=== PATIENT | male | born 1960 | race Caucasian/White ===

== ENCOUNTER → 2023-11-17 06:50 | Outpatient (REF) | payer OTHER, SELFPAY | LOC: HWRAD 06:50 | PROVIDERS: ATTENDING PHYSICIAN Nurse Practitioner Family | DX: R10.9 Unspecified abdominal pain (principal) | CPT/HCPCS: 76700 ==

== ENCOUNTER 2024-12-28 11:08 | Inpatient (IN) | payer OTHER, MEDICARE, SELFPAY ==
[2024-12-28 08:14] VITALS: BP 142/86
[2024-12-28 08:29] VITALS: BMI 40.7
--- NOTE | 2024-12-28 08:47 | ED.GENMED ---
History of Present Illness
General
Chief Complaint: Abdominal Pain
Source: patient
Exam Limitations: none
Time Seen by Provider: 12/28/24 08:25
Nursing documentation reviewed up to this point in time: agreed with
History of Present Illness
History of Present Illness:
Patient presents to ED secondary to persistent upper abdominal pain over the past 4 days. Abdominal pain described as sharp, across his abdomen, worse when laying on his stomach, without any alleviating factors. Denies fever or chills. Denies
trauma. Denies back pain. Denies difficulty with urination. Patient states that he started to experience 'stomach virus' symptoms, last week, consisting of vomiting and diarrhea. Vomiting stopped 5 days ago and diarrhea has finally subsided over
the past 2 days. Patient has been only able to eat chicken broth over the past few days. Since onset of symptoms, patient states that he has lost approximately 12 pounds. Of note, prior to onset of symptoms, patient's spouse experienced similar
GI symptoms, which resolved after 1 week. Denies recent travel. Denies recent change in medications or diet. Denies previous history of similar symptoms. Patient who does have history of idiopathic pancreatitis, he states that his symptoms are
different from what he has experienced in the past.
Past History
Past History
ED Past Medical History: GERD, HTN and Other (Cluster headaches, constipation, migraines, degenerative joint disease, scoliosis, spinal stenosis); Negative Hypercholesterolemia, IDDM, NIDDM or CO
ED Past Surgical History: Cardiac (Cardiac catheterization) and Orthopedic (History of back surgery, scope of the left knee)
Social History
Tobacco: Non-smoker
Alcohol: None
Drug: None
Personal:
Living: with family
Employment: Employed
Family History
Family History: Hypertension and CAD; Negative Early CAD
Review of Systems
Review of Systems
Allergies reviewed?: Yes
All Other Systems: ROS reviewed and negative except as documented in HPI and ROS
Constitutional: Reports no symptoms; Denies fever or chills
Respiratory: Reports no symptoms
Cardiac: Reports no symptoms
ABD/GI: Reports abdominal pain, vomiting and diarrhea
: Reports no symptoms
Musculoskeletal: Reports no symptoms
Skin: Reports no symptoms
Neurological: Reports no symptoms
Phy Exam
Physical Exam
Physical Exam:
Physical Exam
General: no apparent distress, not acutely ill. afebrile
Head: nc/at. eomi
Neck: supple. no meningeal signs.
Heart: s1/s2 regular rate and rhythm, no murmur.
Lungs: no acute respiratory distress. clear bilaterally
Abdomen: normal bowel sounds. no distention. mild RUQ/epigastric tenderness to palpation
Neuro: alert and oriented x 3. no focal neurological deficits
Skin: no rash
Psychiatric: well kept. interactive and cooperative
Extremities: no edema. no calf tenderness.
Course
Orders/Labs/Results
Orders:
Orders
12/28/24 08:46
0.9% Sodium Chloride 1000 ml [Nss] 1,000 ml IV BOLUS
Ketorolac [Toradol] 15 mg IV NOW STA
Pantoprazole [Protonix IV] 40 mg IV NOW STA
12/28/24 09:00
Complete Blood Count/With Diff Urgent
Comprehensive Metabolic Panel Urgent
Lipase Urgent
Urinalysis Reflex To Culture Urgent
Date Specimen was Collected: 12/28/24
Time Specimen was Collected: 08:54
Urine Microscopic Reflex Cult Urgent
Urine Culture Urgent
SERENE Source: U
Specimen Description:
Date Specimen was Collected: 12/28/24
Time Specimen was Collected: 08:54
12/28/24 09:59
US Abdomen Complete/Upper Urgent
Comment:
Reason For Exam: RUQ pain
12/28/24 10:15
Lactated Ringers [Lr] 500 ml IV 150 mls/hr
12/28/24 10:39
Code Status As Directed
Resuscitation Status: Full Code
Bisacodyl [Dulcolax] 10 mg RECTAL [id number] PRN
Docusate W/Senna [Senokot-S] 1 tablet PO BIDPRN PRN
Ketorolac [Toradol] 10 mg IV Q6HPRN PRN
Ondansetron Injectable [Zofran] 4 mg IV Q6HPRN PRN
Polyethylene Glycol Powder [Miralax] 17 grams PO DAILYPRN PRN
12/28/24 10:40
Pneumatic Compression Sleeves As Directed
Type: Knee high
12/28/24 10:52
Admit/Transfer Patient As Directed
Co-Sign Provider:
Level of Care: Inpatient admission
Assign to:: Medical/Surgical
Physician / Group: pat Hidalgo
Diagnosis: Pancreatitis
Reason for Hospitalization: Abdominal pain possibly secondary to pancreatitis
Expected length of stay greater than two midnights?: Yes
ELOS- Estimated Length of Stay in days: 3
I certify the patient meets the requirements for IP care: Yes
12/28/24 14:00
Ketorolac [Toradol] 10 mg IV Q6HPRN PRN
12/28/24 18:00
Enoxaparin Sodium [Lovenox] 40 mg SC QPM
Abnormal Lab Results
12/28/24
09:00
Absolute Neuts (auto) 7.2 H 10^3/uL
(1.4-6.5)
Absolute Lymphs (auto) 1.1 L 10^3/uL
(1.2-3.4)
Absolute Monos (auto) 0.8 H 10^3/uL
(0.1-0.6)
Neutrophils % 76.6 H %
(42.2-75.2)
Lymphocytes % 11.8 L %
(20.5-51.1)
Glucose 118 H mg/dl
(70-99)
ALT 230 H U/L
(0-50)
Lipase 3981 H* U/L
(23-300)
Urine Ketones 3+ A
(Negative)
Ur Occult Blood Reflex 1+ A
(Negative)
Leukocyte Esterase Rfl 1+ A
(Negative)
Urine RBC 7-10 A /HPF
(0-2)
Urine Bacteria (Reflex) Few A
(Negative)
Urine Albumin (Reflex) 2+ A
(Neg - Trace)
12/28/24 09:00
12/28/24 09:00
Vital Signs
Initial and Last Documented VS:
Initial Vital Signs
Temp Pulse Resp BP Pulse Ox
97.6 F 93 18 142/86 97
12/28/24 08:14 12/28/24 08:14 12/28/24 08:14 12/28/24 08:14 12/28/24 08:14
Last Documented Vital Signs
Temp Pulse Resp BP Pulse Ox
97.6 F 76 15 147/80 95
12/28/24 08:14 12/28/24 11:20 12/28/24 11:20 12/28/24 11:20 12/28/24 09:15
MDM/Problems Addressed
MDM/Problems Addressed:
History and exam, along with blood work consistent with likely recurrent pancreatitis, likely mediated by recent nonspecific viral illness. However, given patient's persistent right flank/right upper quadrant pain, will obtain abdominal ultrasound.
Patient will be admitted for further evaluation and treatment.
*Critical Care Note
Total Time (30-74mins, 75-104mins- exclusive of procedures): Not Applicable
ED Attending Note
-
Portions of this chart may have been created with voice recognition software.� Occasional wrong word or��sound alike� substitutions may have occurred due to the inherent limitations of voice recognition software.
Discharge Plan
Departure
Patient Disposition: Admit
Date of Disposition: 12/28/24
Time of Disposition: 10:12
Admit to: Med/Surg
Presentation/result/management discussed w/ accepting MD/DO: Hospitalist
Discharge Problem:
Pancreatitis
Interventions
Interventions:
*Risk Screen - Suicide Last Done: 12/28/24 08:14
*General Assessment Last Done: 12/28/24 08:14
*Neglect/Abuse Screening Last Done: 12/28/24 08:14
*ED- Fall Risk Assessment Last Done: 12/28/24 08:32
*ED COVID-19 Vaccine History Last Done: 12/28/24 08:29
NO-Dtnlrz-Iygvmfwrjr Assessment Last Done: 12/28/24 08:31
[2024-12-28] MEDS: NSS 1000 IV (09:04)
[2024-12-28] MEDS: TORADOL 15 MG IV (09:05)
[2024-12-28] MEDS: PROTONIX IV 40 MG IV (09:05)
[2024-12-28 09:07] LABS: % Basophils 0.3 % (0-2); % Eosinophils 2.3 % (0-6); % Immature Granulocytes 0.4 % (0-0.5); % Lymphocytes 11.8 % (20.5-51.1); % Monocytes 8.6 % (1.7-9.3); % Neutrophils 76.6 % (42.2-75.2); Absolute Eosinophils 0.2 10^3/uL (0-0.7); Absolute Lymphocytes 1.1 10^3/uL (1.2-3.4); Absolute Monocytes 0.8 10^3/uL (0.1-0.6); Absolute Neutrophils 7.2 10^3/uL (1.4-6.5); Hematocrit 42.7 % (39.0-52.0); Hemoglobin 14.8 g/dL (13.0-18.0); Mean Corp Hgb Conc. 34.7 g/dL (33.0-37.0); Mean Corpuscular Hgb 30.5 pg (27.0-31.0); Mean Corpuscular Volume 87.9 fL (80.0-94.0); Mean Platelet Volume 9.7 fL (7.4-10.4); Nucleated Red Blood Cells % 0 % (-); Platelet Count 242 10^3/uL (130-400); Red Blood Cell Count 4.86 10^6/uL (4.70-6.10); Red Cell Dist. Width 12.6 % (11.5-14.5); White Blood Cell Count 9.4 10^3/uL (4.8-10.8)
[2024-12-28 09:19] LABS: Urine Albumin 2+ (Neg - Trace); Urine Bilirubin Negative (Negative); Urine Character Clear (Clear); Urine Color Yellow; Urine Glucose Negative (Negative); Urine Ketone 3+ (Negative); Urine Leukocyte 1+ (Negative); Urine Nitrite Negative (Negative); Urine Occult Blood 1+ (Negative); Urine Urobilinogen Negative (Neg - 1+)
[2024-12-28 09:20] VITALS: BP 134/63
[2024-12-28 09:36] LABS: ALT (SGPT) 230 U/L (0-50); AST (SGOT) 44 U/L (17-59); Alkaline Phosphatase 123 U/L (38-126); Blood Urea Nitrogen 13 mg/dl (9-20); Calcium 9.4 mg/dl (8.4-10.2); Carbon Dioxide 24 mmol/L (22-30); Chloride 104 mmol/L (98-107); Estimated Creatinine Clearance > 125 ml/min; Glucose 118 mg/dl (70-99); Potassium 4.1 mmol/L (3.5-5.1); Sodium 140 mmol/L (135-145); Total Bilirubin 0.8 mg/dl (0.2-1.3); Total Protein 6.4 g/dl (6.3-8.2); eGFR > 60.00
[2024-12-28 09:47] LABS: Urine Mucus Few; Urine Urothelial Cell 0-2 /LPF (FEW)
[2024-12-28 09:48] LABS: Urine Bacteria Few (Negative)
[2024-12-28 09:51] LABS: Lipase 3981 U/L (23-300)
[2024-12-28] MEDS: LR 500 IV ×2 (10:23→13:52)
[2024-12-28 10:25] VITALS: BP 128/68
[2024-12-28 11:20] VITALS: BP 147/80
--- NOTE | 2024-12-28 13:01 | HPS.HSE ---
Addendum entered and electronically signed by Chinmay Hidalgo MD 12/28/24 14:14:
I personally performed a history and physical exam of the patient and discussed management with the resident. I reviewed the resident's note and agree with the documented findings and plan of care HPI/CC.
Patient is a 64-year-old male with PMH of idiopathic pancreatitis, essential hypertension, depression/anxiety, hyperlipidemia, BPH came to ER with new onset of abdominal pain started on weekend. Patient have history of idiopathic pancreatitis
diagnosed many years back and has been following with Dr. Westbrook/GI periodically. Patient have not been hospitalized for any pancreatitis episode recently although spouse stated of patient having minimal abdominal discomfort/nausea symptoms
periodically. Last week patient had some episode of nausea/vomiting and felt of having viral gastroenteritis which improved although patient started having abdominal discomfort which continued to progress. Came to ER for further evaluation and was
found to having recurrence of pancreatitis. During my visit patient lying comfortably in bed still complaining abdominal/epigastric discomfort although improved with pain medication. Not feeling nauseous
HEENT: No pallor, cyanosis, or jaundice. Throat clear.
NECK: Supple. No JVD.
RESPIRATORY: Lungs clear to auscultation.
CVS: S1, S2 normal. RRR. No murmur, rub or gallop.
ABDOMEN: soft, minimal epigastric tenderness
EXTREMITIES: No peripheral cyanosis or edema.
SIMULATION EDUCATOR: AOx3. No focal deficits.
Acute pancreatitis
h/o of Idiopathic pancreatitis
-Lipase of 3980
-Patient drinks alcohol occasionally.
-Maintain n.p.o./IV fluids/pain meds
-With known history of idiopathic pancreatitis would not send whole workup. GI consultation requested for further assistance as well.
Acute transplant
-Minimal elevation of ALT to 230. AST/ALP normal
-Liver abdomen ultrasound
Essential hypertension
-Continue ramipril. Continue holding hydrochlorothiazide
HLD
-hold statin with ALT elevation
DVT PPX -scd
Full code
Total time spent : 80 mins
I personally saw and examined the patient.
I have reviewed all diagnostic interpretations and treatment plans as written.
Time includes patient management by me, time spent at the patients bedside, time to review lab and imaging results, discussing patient care, documentation in the medical record, and time spent with the family or caregiver and discussing care plan
with RN/Consultants.
Original Note:
Family Physician
-
Family Physician: ANNEL Hernandez
Chief Complaint
-
Abdominal pain
History of Present Illness
The patient is a 64-year-old male with a past medical history of idiopathic pancreatitis, GERD, hypertension, migraines, scoliosis and spinal stenosis. He presented to ER today with worsening abdominal pain which started on Wednesday. The patient
reported having gastroenteritis likely symptoms last week. He had a few episodes of vomiting and diarrhea last week. His last vomiting was about 5 days ago and his last diarrhea episode was about 2 or 3 days ago. He denies chills or fever or
abdominal pain at that time. Reports his abdominal pain started on Wednesday and gradually increased. At ER admission, the patient lab results were remarkable for elevated lipase level to 3981 and ALT level to 250. He was started on IV bolus
fluids and given PPI and Toradol. He was ordered an abdominal US and admitted to the hospital for further management.
Medical History
Past Medical History
Past Medical History: Reports GERD and HTN
Additional Past Medical History:
Idiopathic pancreatitis,
Migraines
Scoliosis
Spinal stenosis
Past Surgical History: Reports Cardiac (Cardiac catheterization) and Orthopedic (Surgery for back pain and left knee scope)
Social History
Tobacco: Former Smoker (Stop smoking in 2001 /smoked for 25 years)
Alcohol: None
Drug: None
Personal:
Living: With Family
Employment: Employed
Family History
Family History: CAD and Hypertension
Allergies / Home Medications
Allergies reflects when Allergies were last updated in [employer].
Home Medications with original date entered in [employer]
Allergy/Medication List:
Allergies
Allergy/AdvReac Type Severity Reaction Status Date / Time
levofloxacin [From Levaquin] Allergy Hives Verified 12/28/24 08:14
ofloxacin [From Floxin] Allergy Hives Verified 12/28/24 08:14
omeprazole Allergy Itching Verified 12/28/24 08:19
prochlorperazine edisylate Allergy Severe Verified 12/28/24 08:14
[From Compazine] Bronchospasm;
Extrapyramidal
reaction
prochlorperazine maleate Allergy Severe Verified 12/28/24 08:14
[From Compazine] bronchospasm;
Extrapyramidal
reaction
Sulfa (Sulfonamide Allergy Hives Verified 12/28/24 08:14
Antibiotics)
Home Medications
aspirin 81 mg tablet,delayed release 81 mg PO DAILY 09/01/10
multivitamin with folic acid 400 mcg tablet (Tab-A-Bharat) 1 tab PO DAILY 02/03/15
hydrochlorothiazide 12.5 mg tablet 12.5 mg PO DAILY 04/29/23
rosuvastatin 10 mg tablet (Crestor) 10 mg PO QPM 04/29/23
tamsulosin 0.4 mg capsule (Flomax) 0.4 mg PO DAILY 04/29/23
escitalopram oxalate 10 mg tablet 10 mg PO DAILY 12/28/24
meloxicam 7.5 mg tablet 7.5 mg PO DAILY 12/28/24
ramipril 10 mg capsule 10 mg PO DAILY 12/28/24
Review of Systems
-
History Source: Patient
EENT: Reports No Symptoms
Respiratory: Reports No Symptoms
Cardiac: Reports No Symptoms
Abdomen/GI: Reports Abdominal Pain and Nausea
: Reports No Symptoms
Musculoskeletal: Reports No Symptoms
Skin: Reports No Symptoms
Neurological: Reports No Symptoms
Physical Exam
Vital Signs
Vital Signs
Temp Pulse Resp BP Pulse Ox
97.6 F 76 15 147/80 95
12/28/24 08:14 12/28/24 11:20 12/28/24 11:20 12/28/24 11:20 12/28/24 09:15
Physical Exam
General: Well Developed, Well Nourished and Pain
HEENT: NormoCephalic and Anicteric
Respiratory: Clear
Cardiac: S1/S2 and Regular Rhythm
GI: Soft, Non Distended and Tender (Mild tenderness on mid abdominal area/rates his pain6/10)
Musculoskeletal: No Clubbing and No Cyanosis
Skin: Warm
Neuro: Awake, Alert, Oriented and AO x 3
Psych: Calm
Laboratory Results
-
12/28/24 09:00
12/28/24 09:00
Laboratory Results
Total Bilirubin 0.8 mg/dl (0.2-1.3) 12/28/24 09:00
AST 44 U/L (17-59) 12/28/24 09:00
ALT 230 U/L (0-50) H 12/28/24 09:00
Alkaline Phosphatase 123 U/L (38-126) 12/28/24 09:00
Lipase 3981 U/L (23-300) H* 12/28/24 09:00
Impression/Plan
-
IMPRESSION: The patient is a 64-year-old male with a past medical history of idiopathic pancreatitis and had his first episode of pancreatitis about 10 years ago. He was seen by a physician to be sought for his pancreatitis at [place] and his
results come back negative at that time. He reported having gastroenteritis symptoms last week and lost around 12 pounds due having diarrhea and vomiting. His last episode of vomiting was about 5 days ago and his diarrhea started about 2 days ago.
He felt some recovery from his gastroenteritis. But his abdominal pain started on Wednesday and got gradually worsened. He denies fever and chills, chest pain or back pain. His last bowel movement was this morning normal formed. His lab results
was significant for elevated lipase and ALT levels.
#Pancreatitis likely secondary to gallbladder stone vs viral
-No history of gallbladder stone
-Alcohol consuming
-History of recent gastroenteritis
-N.p.o. for now
-IV LR open white at 150/ml per hour
-Abdominal US: Not remarkable- lipase 3981-ALT 250
-GI consulted
#GERD
-Start PPI
#Hypertension
-Continue hydrochlorothiazide
-Continue ramipril
# Hyperlipidemia
-Hold statin for now due to elevated ALT
# BPH
-Continue tamsulosin
# Chronic headache/migraine
#Knee pain
-Continue meloxicam
#Anxiety
-Continue Escitalopram
#DVT Prop: Lovenox
Code:Full code
PLAN:
--- NOTE | 2024-12-28 13:23 | CM ---
Met patient, and dgtr in room. He and live in a 2 level home with 2 steps to enter. There is half bath on entry clerk. UP full flight to full bath and bedrooms. He had TKR in past and has rolling walker and had [facility], PT
RN.
PCP Mahad Bennett
Pharmacy : [facility]
He is independent, drives and does not anticipate any needs at discharge.
Admitted with pancreatitis which he had 4 years ago.
PLAN: home no needs
--- NOTE | 2024-12-28 14:42 | CON.GI ---
Addendum entered and electronically signed by Lily Perez DO 12/28/24 15:42:
The patient was seen and examined by me independently in collaboration with the nurse practitioner.
Past medical history/social history/medications/allergies/family history reviewed.
Lab data and imaging data reviewed.
Brady Kate is a 64 y.o. male with history of idiopathic pancreatitis (attributed to statin therapy), HTN, depression/anxiety, HLD, BPH who presents with abdominal pain which initially started as nausea/vomiting/diarrhea after had
similar symptoms. N/V/D improved, however, abdominal pain improved, prompting him to present for evaluation.
Labs significant for ALT 230, AST 44, Tbili 0.8, Alk phos 123, Lipase 3981.
Abdominal US showed a benign hepatic hemangioma, GB is physiologically distended w/ fluid and shows no shadowing calculi or wall thickening, CBD measures 6 mm. Pancreas not visualized.
He does report at least 4 episodes of what he calls 'mild pancreatitis' per year, often at night, self-limiting and has not sought care for them. He had a negative HIDA in 2019. Prior MRIs in 2015 at time of prior acute pancreatitis requiring
hospitalization, main PD distended to 3 mm in HOP mildly dilated side branch ducts in pancreatic head. Mild diffuse pancreatic parenchymal atrophy, resolution of prior acute mild pancreatitis. Stable moderate hepatomegaly and small hepatic
hemangiomas.
A/P: Abdominal pain 2/2 acute pancreatitis (meets 2/3 diagnostic criteria with lipase and RUQ abdominal pain), etiology unclear
-Suspect 2/2 gallstones with his frequent episodes consistent with biliary colic, prior workup was unremarkable
-check triglycerides (152 during episode in 2015)
-check MRI/MRCP, ativan ordered to help with patients claustrophobia
-IVF, antiemetics, analgesia prn
Original Note:
Consultation
-
Date/Time Consultation Requested: 12/28/24 1340
Date/Time Consultation Performed: 12/28/24 1500
Requesting Provider: Golden Driscoll MD
Performing Provider: ANNEL Matos, Zoe Perez, DO
Reason for Consultation: abdominal pain
Medical History
Chief Complaint / HPI
Chief Complaint: abdominal pain, bloating, vomiting
History of Present Illness:
Pt is a 64yo with hx pancreatitis 2014 ? statin related with recurrent ' pancreatic attacks' 4 times per year, sleep apnea, headaches, constipation, DJD, scoliosis, spinal stenosis, GERD, HTN, prior knee and back surgery with onset of
nausea/vomiting/diarrhea 1 week ago after had similar illness. Initially though symptoms were related to norovirus but did not improve and abdominal pain worsened rating at 7-8/10 in ER. On admission noted with lipase 3981 with bili 0.8, AST
44, ALT 230, alk phos 123. Imaging on admission with US noted small hepatic hemangioma, slightly enlarged non visualization of pancreas, gallbladder distended with fluid and no stones or wall thickening with normal CBD.
In review with patient he again admits to pancreatitis years ago then recurrent episode that will last for short periods about 4 times per year. Episodes may occurs more often at night. Pt admits to diarrhea and feeling of constipation prior
to admission with taking some laxatives without improvement.
Past Medical History
Past Medical History: GERD, HTN and Other (pancreatitis 2015 ? statin related with recurrent ' pancreatic attacks' 4 times per year, sleep apnea, headaches, constipation, DJD, scoliosis, spinal stenosis, )
Past Surgical History: Cardiac (cath) and Orthopedic (back and knee surgery )
Social History
Tobacco: Former Smoker (quit 20 years ago )
Alcohol: Occasional (rare)
Drug: None
Personal:
Living: With Family
Employment: Employed
Family History
Family History: Other (no family hx colon CA or polyps)
Allergies / Home Medications
Allergy/AdvReac Type Severity Reaction Status Date / Time
levofloxacin [From Levaquin] Allergy Hives Verified 12/28/24 08:14
ofloxacin [From Floxin] Allergy Hives Verified 12/28/24 08:14
omeprazole Allergy Itching Verified 12/28/24 08:19
prochlorperazine edisylate Allergy Severe Verified 12/28/24 08:14
[From Compazine] Bronchospasm;
Extrapyramidal
reaction
prochlorperazine maleate Allergy Severe Verified 12/28/24 08:14
[From Compazine] bronchospasm;
Extrapyramidal
reaction
Sulfa (Sulfonamide Allergy Hives Verified 12/28/24 08:14
Antibiotics)
�Medication �Instructions �Recorded
aspirin 81 mg tablet,delayed 81 mg PO DAILY 09/01/10
release
multivitamin with folic acid 400 1 tab PO DAILY 02/03/15
mcg tablet (Tab-A-Bharat)
hydrochlorothiazide 12.5 mg tablet 12.5 mg PO DAILY 04/29/23
rosuvastatin 10 mg tablet (Crestor) 10 mg PO QPM 04/29/23
tamsulosin 0.4 mg capsule (Flomax) 0.4 mg PO DAILY 04/29/23
escitalopram oxalate 10 mg tablet 10 mg PO DAILY 12/28/24
meloxicam 7.5 mg tablet 7.5 mg PO DAILY 12/28/24
ramipril 10 mg capsule 10 mg PO DAILY 12/28/24
Review of Systems
-
History Source: Patient and Family
Constitutional: Reports No Symptoms
EENT: Reports No Symptoms
Respiratory: Reports No Symptoms
Cardiac: Reports No Symptoms
Abdomen/GI: Reports Abdominal Pain, Nausea, Vomiting, Diarrhea and Constipated
: Reports No Symptoms
Musculoskeletal: Reports No Symptoms
Skin: Reports No Symptoms
Neurological: Reports Weakness
Endocrine: Reports No Symptoms
Hematologic/Lymphatic: Reports No Symptoms
Vital Signs
Temp Pulse Resp BP Pulse Ox
97.6 F 76 15 147/80 95
12/28/24 08:14 12/28/24 11:20 12/28/24 11:20 12/28/24 11:20 12/28/24 09:15
Physical Exam
Exam
General: Well Developed, Well Nourished and No Apparent Distress
HEENT: Normocephalic
Respiratory: Clear
Cardiac: Regular Rhythm
GI: Soft, Non Distended and Tender (epigastric pain and upper abdomen )
Musculoskeletal: No Clubbing and No Cyanosis
Skin: Warm and Dry
Neuro: Awake, Alert and AO x 3
Psych: Calm
Results
WBC 9.4 10^3/uL (4.8-10.8) 12/28/24 09:00
Hgb 14.8 g/dL (13.0-18.0) 12/28/24 09:00
Hct 42.7 % (39.0-52.0) 12/28/24 09:00
MCV 87.9 fL (80.0-94.0) 12/28/24 09:00
Plt Count 242 10^3/uL (130-400) 12/28/24 09:00
Absolute Neuts (auto) 7.2 10^3/uL (1.4-6.5) H 12/28/24 09:00
Sodium 140 mmol/L (135-145) 12/28/24 09:00
Potassium 4.1 mmol/L (3.5-5.1) 12/28/24 09:00
Chloride 104 mmol/L (98-107) 12/28/24 09:00
Carbon Dioxide 24 mmol/L (22-30) 12/28/24 09:00
BUN 13 mg/dl (9-20) 12/28/24 09:00
Creatinine 0.7 mg/dL (0.7-1.3) 12/28/24 09:00
Calcium 9.4 mg/dl (8.4-10.2) 12/28/24 09:00
Total Bilirubin 0.8 mg/dl (0.2-1.3) 12/28/24 09:00
AST 44 U/L (17-59) 12/28/24 09:00
ALT 230 U/L (0-50) H 12/28/24 09:00
Alkaline Phosphatase 123 U/L (38-126) 12/28/24 09:00
Lipase 3981 U/L (23-300) H* 12/28/24 09:00
Diagnostic Image Results:
12/28/24 US Abdomen Complete/Upper
IMPRESSION: Unremarkable abdominal ultrasound except for a small hepatic hemangioma. Slightly enlarged.
Nonvisualization of the pancreas
Prior GI Procedures:
EGD:12/2017 [facility] - Normal examined duodenum. Biopsied.
- Erosive gastropathy. Biopsied.
- Gastric ulcer. Biopsied.
- Erythematous mucosa in the antrum.
- Z-line regular, 40 cm from the incisors.
- No gross lesions in esophagus.
bx neg h pylori, neg metaplasia
Colonoscopy: 02/26/23 [facility] - Preparation of the colon was fair.
- Two 3 to 4 mm polyps in the cecum, removed with a
cold snare. Resected and retrieved.
- Three 2 to 4 mm polyps in the descending colon,
removed with a cold snare and removed with a jumbo
cold forceps. Resected and retrieved.
- Diverticulosis in the sigmoid colon and in the
descending colon.
- Internal hemorrhoids.
bx TA
Assessment / Plan
-
Pt is a 64yo with hx pancreatitis 2014 ? statin related with recurrent ' pancreatic attacks' 4 times per year, sleep apnea, headaches, constipation, DJD, scoliosis, spinal stenosis, GERD, HTN, prior knee and back surgery with onset of
nausea/vomiting/diarrhea 1 week ago after had similar illness. Initially though symptoms were related to norovirus but did not improve and abdominal pain worsened rating at 7-8/10 in ER. On admission noted with lipase 3981 with bili 0.8, AST
44, ALT 230, alk phos 123. Imaging on admission with US noted small hepatic hemangioma, slightly enlarged non visualization of pancreas, gallbladder distended with fluid and no stones or wall thickening with normal CBD.
-epigastric abdominal pain with elevated lipase and mild AST elevation with concern for pancreatitis
-hx pancreatitis 2015 ? statin related with ' pancreatic attacks' 4 times per year
-nausea/vomiting/diarrhea with concern for norovirus prior to abdominal pain and sick contact
-constipation with bloating and laxative use prior to admission
other med problems:
-hx spinal stenosis/scoliosis/chronic back/knee pain on daily Meloxicam
-headaches
-DJD
-hx colon polyps
PLAN:etiology of symptoms concern for pancreatitis-- gallstone related ? period passage of stone with recurrent episodes, biliary colic, vs other
rare ETOH use
will check MRI/MRCP to further eval pancreas as not visualized on imaging -- will need ativan prior to imaging
trend labs
aggressive IVF
pain control per hospitalist
add IGG4 and TG level in am
family updated
-
-
Thank you for consultation and allowing me to participate in the patient's care. Please call the transmission line engineer GI physician during the after hours with any questions or concerns.
[2024-12-28 15:24] VITALS: BP 133/63; BMI 40.9
[2024-12-28] MEDS: ROXICODONE 5 MG PO (16:14)
[2024-12-28] MEDS: LR 1000 IV (17:11)
[2024-12-28] MEDS: ZOFRAN 4 MG IV (18:49)
[2024-12-28 22:58] VITALS: BP 103/60
[2024-12-29] MEDS: LR 1000 IV ×3 (01:02→14:26)
[2024-12-29 07:00] VITALS: BP 157/79
[2024-12-29] MEDS: ASPIR LOW (ENTERIC COATED) 81 MG PO (07:28)
[2024-12-29] MEDS: TYLENOL 650 MG PO ×2 (07:28→16:42)
[2024-12-29] MEDS: ALTACE 10 MG PO (07:28)
[2024-12-29] MEDS: LEXAPRO 10 MG PO (07:29)
[2024-12-29] MEDS: THERAGRAN 1 TABLET PO (07:29)
[2024-12-29] MEDS: FLOMAX 0.4 MG PO (07:29)
[2024-12-29 08:01] LABS: Hemoglobin 14.1 g/dL (13.0-18.0); Mean Corp Hgb Conc. 35.3 g/dL (33.0-37.0); Mean Corpuscular Hgb 31.2 pg (27.0-31.0); Mean Corpuscular Volume 88.5 fL (80.0-94.0); Platelet Count 256 10^3/uL (130-400); Red Blood Cell Count 4.52 10^6/uL (4.70-6.10); Red Cell Dist. Width 12.6 % (11.5-14.5); White Blood Cell Count 11.5 10^3/uL (4.8-10.8)
--- NOTE | 2024-12-29 08:12 | W.PN.HOSP.TC ---
Addendum entered and electronically signed by Chinmay Hidalgo MD 12/29/24 14:40:
Add on to dx list
Obesity - due to excessive calorie intake
Addendum entered and electronically signed by Chinmay Hidalgo MD 12/29/24 13:42:
I saw and evaluated the patient. I reviewed the resident�s note and agree with findings and plan as documented in the resident�s note.
Acute pancreatitis
h/o of Idiopathic pancreatitis
-Lipase of 3980
-Patient drinks alcohol occasionally.
-Maintain n.p.o./IV fluids/pain meds
Acute transaminitis
-Minimal elevation of ALT to 230. AST/ALP normal
-Liver abdomen ultrasound normal-GI checking MRI/MRCP
Essential hypertension
-Continue ramipril. Continue holding hydrochlorothiazide
Headache
-Toradol not effective/cannot tolerate Compazine
-Imitrex 25mg trial dose ordered
HLD
-hold statin with ALT elevation
DVT PPX -scd
Full code
Total time spent : 52 mins
Original Note:
Today's Communication/Plan
-
- MRI/MRCP awaiting to be obtained
- Maintain n.p.o.
- Continue IV fluids
- Follow CBC, CMP and lipase levels
Assessment / Plan
Assessment / Plan
Plan
#Acute pancreatitis
-History of Idiopathic pancreatitis
-Lipase of 3980//lipase ordered to trend with ongoing abdominal pain
-No history of gallbladder stones
-No regular alcohol consuming/occasionally per patient's report
-Triglyceride 133
-Maintain NPO
-Continue IV fluids at 150/ml per hour
-GI on board
-MRI/MRCP awaiting to be obtained--if results come back unremarkable EUS and genetic testing can be considered to understand the underlying reason
# Transaminitis
-ALT found elevated to 230 at admission-trended down to 150--- AST/ALP normal--Tbil 0.7
-Liver abdomen ultrasound: Unremarkable except for small hepatic hemangioma and slightly enlarged liver
# Nausea
- No vomiting since yesterday
- IV Zofran was helpful at some point
- Has severe allergy for Compazine
- Metoclopramide can be considered
# Headache
-History of chronic headache and migraine
-Toradol did not help his pain too much
- Could not tolerate oxycodone
Essential hypertension
-Continue ramipril. Continue holding hydrochlorothiazide
-PRN IV hydralazine
HLD
-hold statin with ALT elevation
DVT PPX -scd
Full code
Anticipated Discharge: 24 - 48 hours
Subjective/Interval History
-
Date of Service: December 29, 2024
Patient reports having headache and some nausea. He reports Zofran helped his nausea some and feeling somewhat better now. He complains still from abdominal pain and rates it 03/06
Objective Data
-
Labs:
Laboratory Results
12/29/24
07:37
WBC 11.5 H
Hgb 14.1
Hct 40.0
Plt Count 256
Sodium Pending
Potassium Pending
Chloride Pending
Carbon Dioxide Pending
BUN Pending
Creatinine Pending
Glucose Pending
Calcium Pending
Total Bilirubin Pending
AST Pending
ALT Pending
Alkaline Phosphatase Pending
Vital Signs:
Vital Signs
Temp Pulse Resp BP Pulse Ox
97.9 F 82 18 103/60 97
12/28/24 22:58 12/28/24 22:58 12/28/24 22:58 12/28/24 22:58 12/28/24 22:58
I&O
12/28/24 12/29/24 12/30/24
06:59 06:59 06:59
Intake Total 1540 / 1540
Output Total 200 / 200
Balance 1340 / 1340
Review of Systems
-
History Source: Patient
Constitutional: Reports Other (Headache)
Respiratory: Reports No Symptoms
Cardiac: Reports No Symptoms
Abdomen/GI: Reports Abdominal Pain and Nausea
Genitourinary: Reports No Symptoms
Musculoskeletal: Reports No Symptoms
Skin: Reports No Symptoms
Neuro: Reports No Symptoms
Physical Exam
-
General: Well Developed, Well Nourished, Pain and Morbidly Obese
HEENT: Normocephalic and Atraumatic
Respiratory: Clear to Auscultation
Cardiac: Regular Rhythm and S1/S2
GI: Soft, Nondistended and Tender (Mild tenderness on the mid abdominal area)
Musculoskeletal: No Clubbing and No Cyanosis
Skin: Warm
Neuro: Awake, Alert, Oriented, AO x 3 and Other (Headache-history of chronic headache and migraine)
[2024-12-29 08:36] LABS: ALT (SGPT) 150 U/L (0-50); AST (SGOT) 27 U/L (17-59); Albumin 3.5 g/dl (3.5-5.0); Alkaline Phosphatase 92 U/L (38-126); Blood Urea Nitrogen 13 mg/dl (9-20); Calcium 9.4 mg/dl (8.4-10.2); Carbon Dioxide 27 mmol/L (22-30); Chloride 101 mmol/L (98-107); Estimated Creatinine Clearance > 125 ml/min; Glucose 94 mg/dl (70-99); Potassium 4.6 mmol/L (3.5-5.1); Sodium 140 mmol/L (135-145); Total Bilirubin 0.7 mg/dl (0.2-1.3); Triglycerides 133 mg/dl (10-149); eGFR > 60.00
--- NOTE | 2024-12-29 10:54 | W.PN.GI.CBS2 ---
Today's Communication / Plan
-
continue with IVF; MRI/MRCP pending
Assessment / Plan
-
Brady Kate is a 64 y.o. male with history of idiopathic pancreatitis (attributed to statin therapy), HTN, depression/anxiety, HLD, BPH who presents with abdominal pain which initially started as nausea/vomiting/diarrhea after had
similar symptoms. N/V/D improved, however, abdominal pain improved, prompting him to present for evaluation.
ALT 230--> 150
AST 44
Tbili 0.8
Alk phos 123
Lipase 3981.
Abdominal US showed a benign hepatic hemangioma, GB is physiologically distended w/ fluid and shows no shadowing calculi or wall thickening, CBD measures 6 mm. Pancreas not visualized.
He does report at least 4 episodes of what he calls 'mild pancreatitis' per year, often at night, self-limiting and has not sought care for them. He had a negative HIDA in 2019. Prior MRIs in 2015 at time of prior acute pancreatitis requiring
hospitalization, main PD distended to 3 mm in HOP mildly dilated side branch ducts in pancreatic head. Mild diffuse pancreatic parenchymal atrophy, resolution of prior acute mild pancreatitis. Stable moderate hepatomegaly and small hepatic
hemangiomas.
A/P: Abdominal pain 2/2 acute pancreatitis (meets 2/3 diagnostic criteria with lipase and RUQ abdominal pain), etiology unclear
-Suspect 2/2 gallstones with his frequent episodes consistent with biliary colic, prior workup was unremarkable
-check triglycerides (152 during episode in 2014)
-check MRI/MRCP, ativan ordered to help with patients claustrophobia
-IVF w/ LR @ 150 cc/hr (moderate volume resuscitation) antiemetics, analgesia prn
-if above workup is negative, would consider EUS and genetic testing as an outpatient given recurrent episodes without unclear etiology, though, his story is highly suspicious for symptomatic cholelithiasis
Subjective
Subjective
Date of Service: December 29, 2024
Patient seen in follow-up, at bedside. Pain tolerable at the moment. No overnight events. MRI/MRCP pending.
Objective
Data Reviewed
Laboratory Data:
Laboratory Results
12/29/24 07:37
12/29/24 07:37
Laboratory Results
Total Bilirubin 0.7 mg/dl (0.2-1.3) 12/29/24 07:37
AST 27 U/L (17-59) 12/29/24 07:37
ALT 150 U/L (0-50) H 12/29/24 07:37
Alkaline Phosphatase 92 U/L (38-126) 12/29/24 07:37
Lipase 3981 U/L (23-300) H* 12/28/24 09:00
Vital Signs and I&O:
Vital Signs
Temp Pulse Resp BP Pulse Ox
98.4 F 78 19 157/79 97
12/29/24 07:00 12/29/24 07:00 12/29/24 07:00 12/29/24 07:00 12/29/24 07:00
I&O
12/28/24 12/29/24 12/30/24
06:59 06:59 06:59
Intake Total 1540 / 1540
Output Total 200 / 200
Balance 1340 / 1340
Physical Exam
Physical Exam
HEENT: Anicteric and Moist mucous membranes
GI: Soft, Non Distended and Non Tender (mild TTP in epigastrium and RUQ, no rebound or guarding)
--- NOTE | 2024-12-29 11:34 | PN.CDI ---
CDI
- -
CDI:
Physician Documentation Request
Admit Date: 12/28/24 11:08
Dear Doctor,
Please review the following and provide your response in the progress notes.
Clinical Indicators:
Height: 5'9
Weight: 276 lbs
BMI: 40.8
If possible, please provide an associated diagnosis related to the abnormal BMI, such as:
Morbid obesity
BMI is not significant
Other (please specify)
Use of terms such as suspected, likely, concern for, or probable (associated with a specific diagnosis that is being evaluated, monitored, or treated as if it exists) are acceptable and can be coded in the inpatient setting, when documented at the
time of discharge.
Thank you,
Cyndy Coy RN
CDI Specialist
Please use your independent medical judgment in providing your response.
[2024-12-29] MEDS: ATIVAN 1 MG PO (12:26)
[2024-12-29] MEDS: IMITREX 25 MG PO (14:26)
[2024-12-29 15:00] VITALS: BP 141/85
[2024-12-29 23:03] VITALS: BP 132/55
[2024-12-30] MEDS: LR 1000 IV (03:00)
[2024-12-30 07:10] VITALS: BP 150/70
--- NOTE | 2024-12-30 07:33 | W.PN.HOSP.TC ---
Today's Communication/Plan
-
- Discharge
Assessment / Plan
Assessment / Plan
Plan
#Acute pancreatitis
-History of Idiopathic pancreatitis
-Lipase trended down to 1040 from 3981
-No history of gallbladder stones
-No regular alcohol consuming/occasionally per patient's report
-Triglyceride 133
-Tolerating oral taking well
-Continue IV fluids at 150/ml per hour
-GI on board: Ordered IgG4-patient will follow-up result with his PCP
-MRI/MRCP:Mild acute interstitial edematous pancreatitis. No loculated peripancreatic fluid collection or evidence for pancreatic necrosis-No MRCP evidence for choledocholithiasis.
# Transaminitis
-ALT trending down --- AST/ALP normal--Tbil normal
-Liver abdomen ultrasound: Unremarkable except for small hepatic hemangioma and slightly enlarged liver
# Nausea
- Improved
- IV Zofran was helpful at some point
- Has severe allergy for Compazine
# Headache
-History of chronic headache and migraine
-Toradol did not help his pain too much
-Could not tolerate oxycodone
-Given 1 dose of sumatriptan and help pain
Essential hypertension
-Continue ramipril
-Continue hydrochlorothiazide following discharge
-PRN IV hydralazine
HLD
- Continue statin
- Follow-up with his PCP to check his liver enzymes in a week
DVT PPX -scd
Full code
Anticipated Discharge: Today
Subjective/Interval History
-
Date of Service: December 30, 2024
Patient reported less abdominal pain and improvement with his headache. He reported tolerating his diet since yesterday without any abdominal pain.
Objective Data
-
Labs:
Laboratory Results
12/30/24
06:04
WBC Pending
Hgb Pending
Hct Pending
Plt Count Pending
Sodium Pending
Potassium Pending
Chloride Pending
Carbon Dioxide Pending
BUN Pending
Creatinine Pending
Glucose Pending
Calcium Pending
Total Bilirubin Pending
AST Pending
ALT Pending
Alkaline Phosphatase Pending
Vital Signs:
Vital Signs
Temp Pulse Resp BP Pulse Ox
97.9 F 66 18 132/55 98
12/29/24 23:03 12/29/24 23:03 12/29/24 23:03 12/29/24 23:03 12/29/24 23:03
I&O
12/29/24 12/30/24 12/31/24
06:59 06:59 06:59
Intake Total 1540 / 1540 1120 / 1120
Output Total 200 / 200
Balance 1340 / 1340 1120 / 1120
Review of Systems
-
History Source: Patient
EENT: Reports No Symptoms Reported
Respiratory: Reports No Symptoms
Cardiac: Reports No Symptoms
Abdomen/GI: Reports Other (Abdominal discomfort)
Genitourinary: Reports No Symptoms
Musculoskeletal: Reports Other (Chronic back pain)
Neuro: Reports No Symptoms
Endocrine: Reports No Symptoms
Physical Exam
-
General: Well Developed, Well Nourished and Morbidly Obese
HEENT: Normocephalic and Atraumatic
Respiratory: Clear to Auscultation
Cardiac: Regular Rhythm and S1/S2
GI: Soft, Nontender, Nondistended and Other (Feels some abdominal discomfort on the right mid abdominal area)
Musculoskeletal: No Clubbing and No Cyanosis
Neuro: Awake, Alert, Oriented, AO x 3 and Nonfocal/Grossly Intact
[2024-12-30 07:42] LABS: Hematocrit 37.4 % (39.0-52.0); Hemoglobin 12.7 g/dL (13.0-18.0); Mean Corpuscular Hgb 30.4 pg (27.0-31.0); Mean Corpuscular Volume 89.5 fL (80.0-94.0); Mean Platelet Volume 9.9 fL (7.4-10.4); Platelet Count 241 10^3/uL (130-400); Red Blood Cell Count 4.18 10^6/uL (4.70-6.10); Red Cell Dist. Width 12.5 % (11.5-14.5); White Blood Cell Count 7.5 10^3/uL (4.8-10.8)
[2024-12-30 07:59] LABS: ALT (SGPT) 108 U/L (0-50); AST (SGOT) 25 U/L (17-59); Albumin 2.9 g/dl (3.5-5.0); Alkaline Phosphatase 83 U/L (38-126); Blood Urea Nitrogen 12 mg/dl (9-20); Calcium 8.7 mg/dl (8.4-10.2); Carbon Dioxide 28 mmol/L (22-30); Chloride 105 mmol/L (98-107); Estimated Creatinine Clearance > 125 ml/min; Glucose 97 mg/dl (70-99); Lipase 1040 U/L (23-300); Potassium 4.3 mmol/L (3.5-5.1); Sodium 140 mmol/L (135-145); Total Bilirubin 0.5 mg/dl (0.2-1.3); Total Protein 5.1 g/dl (6.3-8.2); eGFR > 60.00
[2024-12-30] MEDS: ASPIR LOW (ENTERIC COATED) 81 MG PO (09:18)
[2024-12-30] MEDS: FLOMAX 0.4 MG PO (09:18)
[2024-12-30] MEDS: LEXAPRO 10 MG PO (09:18)
[2024-12-30] MEDS: THERAGRAN 1 TABLET PO (09:18)
[2024-12-30] MEDS: ALTACE 10 MG PO (09:18)
--- NOTE | 2024-12-30 10:10 | W.PN.GI.CBS2 ---
Today's Communication / Plan
-
Okay to d/c today; Outpatient follow-up with GI arranged
Assessment / Plan
-
Brady aKte is a 64 y.o. male with history of idiopathic pancreatitis (attributed to statin therapy), HTN, depression/anxiety, HLD, BPH who presents with abdominal pain which initially started as nausea/vomiting/diarrhea after had
similar symptoms. N/V/D improved, however, abdominal pain improved, prompting him to present for evaluation.
ALT 230--> 150--> 108
AST 44--> 25
Tbili 0.8 --> 0.5
Alk phos 123--> 83
Lipase 3981 --> 1040
Abdominal US showed a benign hepatic hemangioma, GB is physiologically distended w/ fluid and shows no shadowing calculi or wall thickening, CBD measures 6 mm. Pancreas not visualized.
MRI/MRCP: The pancreas is mildly edematous, most in keeping with acute interstitial edematous pancreatitis. No loculated peripancreatic fluid collection. No evidence for pancreatic necrosis. The main pancreatic duct is nondilated. No suspicious
pancreatic parenchymal lesion.No intrahepatic or extrahepatic bile duct dilatation. No filling defect to suggest choledocholithiasis. The gallbladder is within normal limits. The liver is enlarged and measures 23.8 cm in length. Stable 0.8 cm
hemangioma in the right hepatic lobe
He does report at least 4 episodes of what he calls 'mild pancreatitis' per year, often at night, self-limiting and has not sought care for them. He had a negative HIDA in 2019. Prior MRIs in 2015 at time of prior acute pancreatitis requiring
hospitalization, main PD distended to 3 mm in HOP mildly dilated side branch ducts in pancreatic head. Mild diffuse pancreatic parenchymal atrophy, resolution of prior acute mild pancreatitis. Stable moderate hepatomegaly and small hepatic
hemangiomas.
A/P: Acute recurrent, idiopathic pancreatitis
-etiology unclear
-despite unremarkable workupx2, his story is suspicious for gallstones given frequent symptoms that seem consistent with biliary colic
-Suspect 2/2 gallstones with his frequent episodes consistent with biliary colic, prior workup was unremarkable
-check triglycerides 133
-IgG 4 pending
-tolerating diet and pain has improved, okay to d/c from GI perspective. Patient requesting follow-up [facility] Dr. Quintero to discuss further workup of his recurrent idiopathic pancreatitis and possible EUS. Appointment scheduled
Subjective
Subjective
Date of Service: December 30, 2024
Patient seen in follow-up, at bedside. He is tolerating a full diet without issue, pain approx a 3/10, improved from arrival. MRI/MRCP showed acute interstitial edematous pancreatitis, no biliary ductal dilation. Gallbladder appears normal
without sludge, stones, wall thickening or pericholecystic fluid.
Objective
Data Reviewed
Laboratory Data:
Laboratory Results
12/30/24 06:04
12/30/24 06:04
Laboratory Results
Total Bilirubin 0.5 mg/dl (0.2-1.3) 12/30/24 06:04
AST 25 U/L (17-59) 12/30/24 06:04
ALT 108 U/L (0-50) H 12/30/24 06:04
Alkaline Phosphatase 83 U/L (38-126) 12/30/24 06:04
Lipase 1040 U/L (23-300) H* 12/30/24 06:04
Vital Signs and I&O:
Vital Signs
Temp Pulse Resp BP Pulse Ox
98.0 F 67 18 150/70 95
12/30/24 07:10 12/30/24 07:10 12/30/24 07:10 12/30/24 07:10 12/30/24 07:10
I&O
12/29/24 12/30/24 12/31/24
06:59 06:59 06:59
Intake Total 1540 / 1540 1120 / 1120
Output Total 200 / 200
Balance 1340 / 1340 1120 / 1120
Physical Exam
Physical Exam
HEENT: Anicteric and Moist mucous membranes
GI: Soft, Non Distended, Non Tender and Normal Bowel Sounds
[2024-12-30 12:02] VITALS: BP 155/78
--- NOTE | 2024-12-30 12:10 | CM ---
CM reviewed chart, patient currently being discharged, IMM reviewed, verbally agreeable, placed in chart, patient declining need for a copy. to transport home. CM will continue to follow for all discharge planning needs.
Plan; home no needs.
--- NOTE | 2024-12-30 13:51 | W.DCSUMMARY ---
Discharge Summary
Discharge Data
Date of Admission: 12/28/24
Date of Discharge: 12/30/24
-
Pending Results: No
Hospital Course
Disposition : Home
Primary care physician : Bull Soto CRNP
Principal Discharge diagnosis : Acute pancreatitis, transaminitis
Chronic Discharge diagnosis : Chronic headache, migraine, chronic back pain, essential hypertension, hyperlipidemia
Hospital Course :
# Acute pancreatitis complicated with transaminitis and nausea: Ms Kate has a history of idiopathic pancreatitis and had several episodes of acute pancreatitis in the past. The patient presented to ER following having gradually worsening pain
on his abdominal area. At ER admission, he was obtained abdominal ultrasound which was not significant. But his lab results was significant with elevated lipase level and elevated ALT level. Patient was consulted to GI and he was obtained and
abdominal MRI/MRCP which noted mildly edematous pancreas and no dilation intra/extrahepatic bile ducts and stable 0.8 cm hemangioma in the right hepatic lobe. The patient received IV fluids and started on diet. He tolerated oral taking without
abdominal pain and plan to discharge today
# Transaminitis: ALT level started to trend down and the patient was recommended to follow-up with his PCP in a week.
His thoracic and lumbar spine x-ray was obtained to determine better his thoracic spinal stimulator if it is MRI compatible before he was obtained abdominal MRI/MRCP
Important imaging findings :
12/28/24 Abdominal ultrasound
FINDINGS: The liver is normal in size, measuring 15.1 cm in length. It is normal in echogenicity. There is a small echogenic focus in the liver in the right lobe consistent a benign hemangioma. It measures 12 mm. This previously measured 8 mm. the
gallbladder is physiologically distended with fluid and shows no shadowing calculi or wall thickening. The common duct is normal, measuring 6 mm. The pancreas is nonvisualized due to overlying bowel gas. The spleen is normal in size and shows no
focal abnormality. Survey evaluation of the kidneys shows no hydronephrosis. No free fluid is seen in the abdomen. The proximal IVC and abdominal aorta are unremarkable.
IMPRESSION: Unremarkable abdominal ultrasound except for a small hepatic hemangioma. Slightly enlarged.
Nonvisualization of the pancreas
12/29/24 Thoracic/lumbar spine x-ray:
IMPRESSION:
No acute radiographic abnormalities within the thoracic or lumbar spines.
Multilevel disc disease within the lumbar spine.
Thoracic spinal stimulator leads terminating at T8.
12/29/24 abdominal MRI
FINDINGS:
CHEST: The lung bases are clear.
ABDOMEN:
The pancreas is mildly edematous, most in keeping with acute interstitial edematous pancreatitis. No loculated peripancreatic fluid collection. No evidence for pancreatic necrosis. The main pancreatic duct is nondilated. No suspicious pancreatic
parenchymal lesion.
No intrahepatic or extrahepatic bile duct dilatation. No filling defect to suggest choledocholithiasis. The gallbladder is within normal limits. The liver is enlarged and measures 23.8 cm in length. Stable 0.8 cm hemangioma in the right hepatic
lobe. The spleen, bilateral adrenal glands, and kidneys are unremarkable. No hydronephrosis.
The abdominal aorta is normal in caliber.
No abdominal or retroperitoneal lymphadenopathy.
Colonic diverticulosis.
SKELETON: Chronic degenerative changes of the spine.
Procedure findings :
Discharge Plan
-
Patient Disposition: Home (Routine Discharge)
Discharge Diagnosis/Procedures: Acute pancreatitis
Condition: Fair
Diet: Low Fat
Activity: As tolerated
Driving Restrictions: No driving
Bathing Restrictions: OK to Shower
Referrals:
Bull Soto CRNP [Family Provider] - in one week
Wyatt Quintero MD [Active] - 04/02/25 11:45 am (Currently on cancellation list for earlier appointment)
Prescriptions:
Continued
aspirin 81 MG tablet,delayed release (DR/EC)
81 mg PO DAILY
multivitamin with folic acid [Tab-A-Bharat] 1 TABLET tablet
1 tab PO DAILY
tamsulosin [Flomax] 0.4 mg Capsule
0.4 mg PO DAILY
rosuvastatin [Crestor] 10 mg Tablet
10 mg PO QPM
hydrochlorothiazide 12.5 mg Tablet
12.5 mg PO DAILY
ramipril 10 mg Capsule
10 mg PO DAILY
meloxicam 7.5 mg tablet
7.5 mg PO DAILY
escitalopram oxalate 10 mg tablet
10 mg PO DAILY
Discharge Orders:
Discharge Patient (As Directed); Ordered 12/30/24
Ordered By: Chinmay Hidalgo
Discharge Date and Time
Discharge Date/Time: 12/30/24 12:14
Print Language: MONTSERRATIAN
[2024-12-30 16:51] LABS: IgG Subclass 4 22 mg/dL (1-123)
== END 2024-12-30 12:14 | disposition home or self-care (01) | DRG 439 ==
LOC: 4 WEST ACU 11:08
PROVIDERS: Nurse Practitioner Adult Health; Student in an Organized Health Care Education/Training Program; ADMITTING PHYSICIAN Hospitalist; CONSULT PHYSICIAN Internal Medicine; EMERGENCY PHYSICIAN Emergency Medicine; FAMILY PHYSICIAN Nurse Practitioner Family
DX: K85.00 Idiopathic acute pancreatitis without necrosis or infection (principal); Z68.41 Body mass index [BMI] 40.0-44.9, adult; I10 Essential (primary) hypertension; E78.5 Hyperlipidemia, unspecified; Z87.891 Personal history of nicotine dependence; K21.9 Gastro-esophageal reflux disease without esophagitis; N40.0 Benign prostatic hyperplasia without lower urinary tract symptoms; G44.009 Cluster headache syndrome, unspecified, not intractable; M25.569 Pain in unspecified knee; F41.9 Anxiety disorder, unspecified; D18.03 Hemangioma of intra-abdominal structures; E66.09 Other obesity due to excess calories; K57.30 Diverticulosis of large intestine without perforation or abscess without bleeding; M41.9 Scoliosis, unspecified; Z79.82 Long term (current) use of aspirin
CPT/HCPCS: 72070; 72100; 74183; 76700; 80053; 81003; 81015; 82787; 83690; 84478; 85025; 85027; 87086; 96361; 96374; 96375; 99285

== ENCOUNTER 2025-03-06 06:22 | Day surgery (SDC) | payer OTHER, SELFPAY ==
[2025-03-06 12:05] VITALS: BP 142/75
[2025-03-06 12:09] VITALS: BMI 41.0
[2025-03-06 14:47] VITALS: BP 125/70
[2025-03-06 15:04] VITALS: BP 125/75
[2025-03-06 15:15] VITALS: BP 127/66
== END 2025-03-06 15:26 | disposition home or self-care (01) ==
LOC: GI 06:22
PROVIDERS: ATTENDING PHYSICIAN Internal Medicine Gastroenterology
DX: K21.00 Gastro-esophageal reflux disease with esophagitis, without bleeding (principal); K31.89 Other diseases of stomach and duodenum; K25.9 Gastric ulcer, unspecified as acute or chronic, without hemorrhage or perforation; K85.90 Acute pancreatitis without necrosis or infection, unspecified; K86.9 Disease of pancreas, unspecified; R59.0 Localized enlarged lymph nodes
CPT/HCPCS: 43237; 43239; 88305; 88342

== ENCOUNTER 2025-05-08 06:10 | Day surgery (SDC) | payer OTHER, SELFPAY ==
[2025-05-08 11:16] VITALS: BMI 41.1
[2025-05-08 11:17] VITALS: BMI 41.1
[2025-05-08 11:33] VITALS: BP 106/76
[2025-05-08 12:12] VITALS: BP 120/62
[2025-05-08 12:15] VITALS: BP 120/59
[2025-05-08 12:30] VITALS: BP 107/59
== END 2025-05-08 12:45 | disposition home or self-care (01) ==
LOC: GI 06:10
PROVIDERS: ATTENDING PHYSICIAN Internal Medicine Gastroenterology
DX: K27.9 Peptic ulcer, site unspecified, unspecified as acute or chronic, without hemorrhage or perforation (principal); K21.00 Gastro-esophageal reflux disease with esophagitis, without bleeding; K29.50 Unspecified chronic gastritis without bleeding
CPT/HCPCS: 43239; 88305